=== PATIENT | male | born 1935 | race Caucasian/White ===

== ENCOUNTER 2017-01-22 12:30 | Emergency (ER) | payer MEDICARE, OTHER ==
[2017-01-22 13:46] LABS: HEMOGLOBIN 15.5 gm/dl (14.0-17.5); RED BLOOD COUNT 4.96 M/UL (4.20-5.50); WHITE BLOOD COUNT 7.8 K/UL (4.5-11.0)
[2017-01-22 14:08] LABS: BUN/CREATININE RATIO 16 (0-10)
== END 2017-01-22 16:19 | disposition home or self-care (01) ==
LOC: ER1 12:30
PROVIDERS: Family Medicine
DX: R00.2 Palpitations (principal); K21.9 Gastro-esophageal reflux disease without esophagitis; I10 Essential (primary) hypertension
CPT/HCPCS: 36415; 71010; 80053; 82550; 82553; 83874; 84443; 84484; 85025; 93005; 99285